=== PATIENT | male | born 1945 | race Two or more races ===

== ENCOUNTER 2021-09-13 09:22 | Day surgery (SDC) | payer MEDICARE ==
[2021-09-11 10:45] LABS: Hematocrit 35.7 % (41.0-53.0); Hemoglobin 12.1 g/dL (13.5-17.5); Mean Corpuscular Hemoglobin 33.2 pg (28.0-32.0); Mean Corpuscular Hgb Conc. 33.9 g/dL (32.0-36.0); Mean Corpuscular Volume 98.1 fL (80.0-100.0); Red Blood Cells 3.64 10^6/uL (4.5-5.90); Red Cell Distribution Width 14.6 % (11.8-14.3); White Blood Cell 22.1 10^3/uL (4.4-10.8)
[2021-09-11 10:54] LABS: Basophils % (manual) 0 (0.0-2.0); Blast Cells 0; Eosinophils % (manual) 0 (0-7); Metamyelocytes % 0; Myelocytes % 0; Promyelocytes % 0
[2021-09-11 11:00] LABS: INR 1.03 (0.9-1.15); Partial Thromboplastin Time 23.8 sec (23.6-33.0)
[2021-09-11 11:19] LABS: Albumin 4.2 g/dL (3.4-5.0); Calcium 9.3 mg/dL (8.5-10.1); Potassium 4.8 mmol/L (3.5-5.1)
[2021-09-11 11:23] LABS: BUN/Creatinine Ratio 16.2; Bilirubin, Total 0.6 mg/dL (0.2-1.0); Total Protein 6.6 g/dL (6.4-8.2)
[2021-09-11 12:15] LABS: Band Neutrophils % (manual) 4; Lymphocytes % (manual) 72 (10.0-50.0); Monocytes % (manual) 1 (0-12); Reactive Lymphocytes 16
[~2021-09-13] VITALS: Ht 172.7 cm; Wt 79.4 kg
[~2021-09-13 09:22] MED LIST: ATO40T PO; FLUO40CA PO; GLIP5TAB12 PO; RAMI5CAP40 PO; TAMS0.4C36 PO
[2021-09-13] MEDS ORDERED: SODIUM CHLORIDE LOCK 10 ML ONE (10:10)
[2021-09-13] MEDS ORDERED: diphenhdrAMINE HCL 50 MG/1 ML VL ONE (10:10)
[2021-09-13] MEDS ORDERED: fentaNYL CITRATE 100 MCG/2 ML VL ONE (10:10)
[2021-09-13] MEDS ORDERED: LIDOCAINE VISCOUS 2% 15ML UD ONE (10:10)
[2021-09-13] MEDS ORDERED: MIDAZOLAM HCL 5 MG/ML-1ML VIAL ONE (10:10)
[2021-09-13 11:40] VITALS: BP 151/69
== END 2021-09-13 11:58 | disposition home or self-care (01) ==
LOC: GI 09:22
PROVIDERS: ATTEND Internal Medicine Gastroenterology
DX: R59.1 Generalized enlarged lymph nodes (principal); K29.50 Unspecified chronic gastritis without bleeding; K44.9 Diaphragmatic hernia without obstruction or gangrene; D12.8 Benign neoplasm of rectum; K57.30 Diverticulosis of large intestine without perforation or abscess without bleeding; I10 Essential (primary) hypertension; E78.5 Hyperlipidemia, unspecified; E11.9 Type 2 diabetes mellitus without complications; Z90.49 Acquired absence of other specified parts of digestive tract; Z98.890 Other specified postprocedural states; Z79.899 Other long term (current) drug therapy; Z20.822 Contact with and (suspected) exposure to COVID-19
CPT/HCPCS: 36415; 43239; 45385; 80053; 82962; 85007; 85027; 85610; 85730; 88305; J1200; J2250; J3010; J7030; U0003; G0500